=== PATIENT | male | born 1985 | race Caucasian/White ===

== ENCOUNTER 2016-09-19 07:50 | Emergency (ER) | payer BC ==
[2016-09-19 08:51] LABS: HEMOGLOBIN 13.9 gm/dl (14.0-17.5); RED BLOOD COUNT 4.96 M/UL (4.20-5.50); WHITE BLOOD COUNT 11.3 K/UL (4.5-11.0)
[2016-09-19 08:55] LABS: BUN/CREATININE RATIO 14 (0-10)
== END 2016-09-19 11:30 | disposition home or self-care (01) ==
LOC: ER1 07:50
PROVIDERS: Emergency Medicine
DX: N20.2 Calculus of kidney with calculus of ureter (principal)
CPT/HCPCS: 36415; 80053; 81001; 83690; 85025; 87086; 96361; 96374; 96375; 99284; J2270; J2405; J7030

== ENCOUNTER → 2020-08-24 | Outpatient (CLI) | payer BC ==
[~2020-08-24] MED LIST: AMLODIPINE BESY10 MG PO; COLACE 100MG C100 MG PO; IBU600 MG PO; IBUPROFEN600 MG PO; LISINOPRIL30 MG PO; NORCO 5-325 TA1 EACH PO; NORCO 7.5-3251 EACH PO; PAROXETINE HCL10 MG PO; PROTONIX40 MG PO; TECFIDERA240 MG PO; VITAMIN D2000 UNI1 PO; ZOFRAN ODT 4 MG4 MG SL; ZOFRAN4 MG PO
== END ==
LOC: EXRD 15:17
DX: M54.5 Low back pain (principal); G35 Multiple sclerosis; M54.31 Sciatica, right side; M46.04 Spinal enthesopathy, thoracic region
CPT/HCPCS: 72070; 72100

== ENCOUNTER → 2021-03-11 | Outpatient (CLI) | payer BC | LOC: MRI 13:00 | DX: M54.31 Sciatica, right side (principal); M51.26 Other intervertebral disc displacement, lumbar region; M51.27 Other intervertebral disc displacement, lumbosacral region | CPT/HCPCS: 72148 ==